=== PATIENT | female | born 1955 | race Caucasian/White ===

== ENCOUNTER → 2016-10-26 | Outpatient (CLI) | payer OTHER, BC ==
[~2016-10-26] VITALS: Ht 170.2 cm; Wt 83.0 kg
[~2016-10-26] MED LIST: CELEXA40 MG PO; KEFLEX250 MG PO; LEVSIN-SL0.125 MG SL; METHADONE HCL5 MG PO; NORCO 10-325 T1 EACH PO; OMEPRAZOLE20 M2 PO; RENA-VITE RX T1 EACH PO; RESTORIL30 MG PO; VALIUM5 MG PO
[2016-10-26 14:11] VITALS: BP 136/92
== END | disposition home or self-care (01) ==
LOC: PAIN 06:56
DX: R10.9 Unspecified abdominal pain (principal); N18.6 End stage renal disease; I12.0 Hypertensive chronic kidney disease with stage 5 chronic kidney disease or end stage renal disease; E07.9 Disorder of thyroid, unspecified; G89.29 Other chronic pain; K27.9 Peptic ulcer, site unspecified, unspecified as acute or chronic, without hemorrhage or perforation; F11.20 Opioid dependence, uncomplicated; F32.89 Other specified depressive episodes; Z87.81 Personal history of (healed) traumatic fracture; Z91.81 History of falling; Z98.890 Other specified postprocedural states; Z90.710 Acquired absence of both cervix and uterus; Z90.49 Acquired absence of other specified parts of digestive tract

== ENCOUNTER → 2016-12-15 | Outpatient (CLI) | payer BC, OTHER | LOC: CAT 08:23 | DX: Q61.3 Polycystic kidney, unspecified (principal) ==

== ENCOUNTER → 2016-12-21 | Outpatient (CLI) | payer OTHER, BC | LOC: RAD 14:54 | DX: Z12.31 Encounter for screening mammogram for malignant neoplasm of breast (principal) ==

== ENCOUNTER 2020-09-29 14:50 | Emergency (ER) | payer OTHER, BC ==
[~2020-09-29] VITALS: Ht 167.6 cm; Wt 63.5 kg
[~2020-09-29 14:50] MED LIST changes: +ELMIRON 100 MG100 M1 PO; +RENVELA800 MG PO; +REQUIP 1 MG TABL1 M1 PO; +ROXICODONE5 M2 PO
[2020-09-29 15:59] LABS: HEMATOCRIT 34.8 % (37.0-47.0); HEMOGLOBIN 11.4 gm/dL (12.0-15.0); MCH 30.7 pg (26.0-34.0); MCHC 32.7 g/dL (28.0-37.0); MCV 93.7 fL (80.0-100.0); PLATELET COUNT 277 thou/uL (150-400); RBC 3.71 mil/uL (4.20-5.00); RDW 13.5 % (10.5-14.5); WBC 7.5 thou/uL (4.0-11.0)
[2020-09-29 16:02] LABS: URINE BILIRUBIN NEGATIVE (Negative); URINE BLOOD TRACE (Negative); URINE CLARITY CLEAR; URINE COLOR YELLOW; URINE GLUCOSE-RANDOM* NEGATIVE (Negative); URINE KETONES NEGATIVE (Negative); URINE LEUKOCYTES-REFLEX TRACE (Negative); URINE NITRITE-REFLEX NEGATIVE (Negative); URINE PROTEIN (DIPSTICK) 2+ (Negative); URINE UROBILINOGEN 0.2 E.U./dl (0.2-1.0)
[2020-09-29 16:07] LABS: CALCIUM 8.8 mg/dL (8.5-10.1); CREATININE 8.7 mg/dL (0.6-1.0); POTASSIUM 4.2 mmol/L (3.5-5.1)
[2020-09-29 16:09] LABS: BACTERIA-REFLEX 1-9 Few /HPF (None Seen); CASTS None Seen /LPF (None Seen); SQUAMOUS 0-3 Few /LPF (0-3); URINE RBC 1-2 Rare /HPF (NONE SEEN); URINE WBC-REFLEX 0-5 Rare /HPF (0-5)
[2020-09-29 16:10] LABS: CRYSTALS None Seen /LPF (None Seen)
[2020-09-29 16:17] LABS: ALBUMIN 3.5 g/dL (3.4-5.0); TOTAL BILIRUBIN 0.4 mg/dL (0.2-1.0); TOTAL PROTEIN 6.7 g/dL (6.4-8.2); TROPONIN-I 0.11 ng/mL (<0.06)
[2020-09-29 16:31] LABS: ABSOLUTE NEUTROPHILS 5.1 thou/uL (1.4-8.2); PLATELET ESTIMATE NORMAL
[2020-09-29] MEDS ORDERED: FERRIC CITRATE210 MG PO (16:47)
[2020-09-29] MEDS ORDERED: VELTASSA8.4 GM PO (16:48)
[2020-09-29] MEDS ORDERED: ENALAPRIL MALEA20 MG PO (16:48)
[2020-09-29] MEDS ORDERED: SENSIPAR60 MG PO (16:49)
[2020-09-29] MEDS ORDERED: ZOFRAN ODT4 MG PO (17:49)
[2020-09-29] MEDS ORDERED: CEPHALEXIN500 MG PO (17:49)
[2020-09-29] MEDS ORDERED: DIAZEPAM 5 MG5 M1 PO (17:49)
[2020-09-29 18:00] VITALS: BP 152/80
--- NOTE | 2020-09-30 07:09 | EKG ---
[place] [address] [facility] [place] [address] ELECTROCARDIOGRAM REPORT Name: TRUNG MOORE Room #: DEP [facility]#: [id number] Admission: 09/29/20 Attend Phys: Discharge: 09/29/20 Date of : 53 Report #: [id number] [facility] ED Test Date: 2020-09-29 Test Time: 17:25:46 Pat Name: TRUNG MOORE Department: Room: Gender: F Client Solutions Director: : 1955 Requested By: Stanley Peters Order Number: [id number] MD: Justo Gruber Measurements Intervals [place] Rate: 84 P: 28 WV: 214 QRS: -16 QRSD: 101 T: 16 QT: 416 QTc: 492 Interpretive Statements Sinus rhythm Left atrial enlargement Left ventricular hypertrophy Borderline prolonged QT interval No previous ECG available for comparison Electronically Signed On 09-30-2020 7:09:34 CDT by Justo Gruber [email or web address] <ELECTRONICALLY SIGNED> By: Justo Gruber MD, [facility] 09/30/20 [id number] 1725 1725 Justo Gruber MD, FACC /EPI
== END 2020-09-29 18:05 | disposition home or self-care (01) ==
LOC: ER 14:50
PROVIDERS: Emergency Medicine
DX: N18.6 End stage renal disease (principal); N39.0 Urinary tract infection, site not specified; R11.2 Nausea with vomiting, unspecified; R51.9 Headache, unspecified; F32.9 Major depressive disorder, single episode, unspecified; F41.9 Anxiety disorder, unspecified; K21.9 Gastro-esophageal reflux disease without esophagitis; F17.210 Nicotine dependence, cigarettes, uncomplicated; Z90.711 Acquired absence of uterus with remaining cervical stump; Z90.49 Acquired absence of other specified parts of digestive tract; Z79.899 Other long term (current) drug therapy

== ENCOUNTER 2020-11-13 21:05 | Emergency (ER) | payer OTHER, BC ==
[~2020-11-13] VITALS: Ht 167.6 cm; Wt 65.8 kg
[~2020-11-13 21:05] MED LIST changes: +CEPHALEXIN500 MG PO; +DIAZEPAM 5 MG5 M1 PO; +ENALAPRIL MALEA20 MG PO; +FERRIC CITRATE210 MG PO; +SENSIPAR60 MG PO; +VELTASSA8.4 GM PO; +ZOFRAN ODT4 MG PO
[2020-11-13 21:10] VITALS: BP 137/95
== END 2020-11-13 22:32 | disposition left against medical advice (07) ==
LOC: ER 21:05
DX: R11.2 Nausea with vomiting, unspecified (principal); Z53.21 Procedure and treatment not carried out due to patient leaving prior to being seen by health care provider; F32.9 Major depressive disorder, single episode, unspecified; F41.9 Anxiety disorder, unspecified; K21.9 Gastro-esophageal reflux disease without esophagitis; Z90.49 Acquired absence of other specified parts of digestive tract; Z90.710 Acquired absence of both cervix and uterus